=== PATIENT | male | born 1950 | race Caucasian/White ===

== ENCOUNTER 2021-04-01 13:58 | Emergency (ER) | payer OTHER ==
--- NOTE | 2021-04-01 17:23 | EDPHYS ---
Physician Documentation [facility] Name: Arnol Guillaume Age: 70 yrs Sex: Male : 1950 Arrival Date: 04/01/2021 Time: 14:07 Bed DIS1 Private MD: ED Physician Horace Tracey HPI: 04/01 17:13 This 70 yrs old Male presents to ER via Ambulatory with complaints of Knee rn Pain - right. 17:13 The patient presents with pain, that is chronic. The complaints affect the right knee. rn Onset: The symptoms/episode began/occurred. 17:14 Onset: The symptoms/episode began/occurred 1 week(s) ago. Modifying factors: The rn symptoms are alleviated by remaining still, the symptoms are aggravated by movement, weight bearing. Severity of symptoms: At their worst the symptoms were moderate, in the emergency department the symptoms have improved. The patient has experienced similar episodes in the past. The patient has not recently seen a physician. Reports chronic right knee pain, no recent injury but giving him problems again, [facility] come [facility] for [facility]. No swelling/redness/fever. No fall. Reports hurts to walk and bend knee. Reports has had fluid drained from that knee before as well as injections. . Historical: - Allergies: 14:22 No Known Allergies; jl7 - PMHx: 14:22 Diabetes - IDDM; High Cholesterol; jl7 - Immunization history:: Adult Immunizations up to date, Client reports receiving the 2nd dose of the Covid vaccine. - Social history:: Smoking status: Patient denies any tobacco usage or history of. - Family history:: not pertinent. - Hospitalizations: : No recent hospitalization is reported. ROS: 17:14 Constitutional: Negative for fever, chills, and weight loss, Eyes: Negative for injury, rn pain, redness, and discharge, Cardiovascular: Negative for chest pain, palpitations, and edema, Respiratory: Negative for shortness of breath, cough, wheezing, and pleuritic chest pain, Abdomen/GI: Negative for abdominal pain, nausea, vomiting, diarrhea, and constipation, MS/Extremity: + right knee pain, neg for injury or deformity Skin: Negative for injury, rash, and discoloration, Neuro: Negative for headache, weakness, numbness, tingling, and seizure. Exam: 17:14 Constitutional: This is a well developed, well nourished patient who is awake, alert, rn and in no acute distress. Cardiovascular: Regular rate and rhythm. No pulse deficits. Skin: Warm, dry with normal turgor. Normal color with no rashes, no lesions, and no evidence of cellulitis. MS/ Extremity: Pulses equal, no cyanosis. Neurovascular intact. No erythema or warmth of right knee. No overlying skin changes. No bony tenderness. NO gross deformity. Vital Signs: 14:19 BP 166 / 83; Pulse 67; Resp 17; Temp 98.2; Pulse Ox 97% ; Weight 113.4 kg; Pain 10/10; jl7 MDM: 17:08 Patient medically screened. rn 17:14 Differential diagnosis: tendonitis, sprain, knee effusion. Data reviewed: vital signs, rn nurses notes, and as a result, I will discharge patient. Counseling: I had a detailed discussion with the patient and/or guardian regarding: the historical points, exam findings, and any diagnostic results supporting the discharge/admit diagnosis, the need for outpatient follow up, to return to the emergency department if symptoms worsen or persist or if there are any questions or concerns that arise at home. Special discussion: I discussed with the patient/guardian in detail that at this point there is no indication for admission to the hospital. It is understood, however, that if the symptoms persist or worsen the patient needs to return immediately for re-evaluation. Based on the history and exam findings, there is no indication for further emergent testing or inpatient evaluation. I discussed with the patient/guardian the need to see the orthopedic surgeon for further evaluation of the symptoms. ED course: When patient came back, he states was under the impression he would see orthopedist and maybe get injection today, now that he was told would not happen unless had an emergency, he would like to leave and [facility].. 17:22 ED course: Pt medically screened, chooses to leave and f/u as outpt.. rn Administered Medications: No medications were administered Disposition: 04/01/21 17:22 Discharged to Home as Medical Screen. Impression: Pain in right knee. - Condition is Stable. - Discharge Instructions: Knee Pain. - Medication Reconciliation Form, Thank You Letter, Antibiotic Education, Prescription Opioid Use form. - Follow up: Private Physician; When: As needed; Reason: Recheck today's complaints, Re-evaluation by your physician. - Problem is new. - Symptoms have improved. Signatures: Dispatcher [employer] EDHorace Bermeo MD MD rn Leal, Jahala RN RN jl7 Nadeen Sequeira RN RN ld1 Corrections: (The following items were deleted from the chart) 17:17 17:14 Constitutional: This is a well developed, well nourished patient who is awake, rn alert, and in no acute distress. Cardiovascular: Regular rate and rhythm. No pulse deficits. Skin: Warm, dry with normal turgor. Normal color with no rashes, no lesions, and no evidence of cellulitis. MS/ Extremity: Pulses equal, no cyanosis. Neurovascular intact. No erythema or warmth of right knee. No overlying skin changes. rn 17:24 17:22 04/01/2021 17:22 Discharged to Home as Medical Screen. Impression: Pain in right ld1 knee. Condition is Stable. Forms are Medication Reconciliation Form, Thank You Letter, Antibiotic Education, Prescription Opioid Use. Follow up: Private Physician; When: As needed; Reason: Recheck today's complaints, Re-evaluation by your physician. Problem is new. Symptoms have improved. rn
--- NOTE | 2021-04-01 17:23 | ER ---
Nurse's Notes [facility] Name: Arnol Guillaume Age: 70 yrs Sex: Male : 1950 Arrival Date: 04/01/2021 Time: 14:07 Bed DIS1 Private MD: Diagnosis: Pain in right knee Presentation: 04/01 14:17 Chief complaint: Chief complaint: Patient states: right knee pain x 1 week, denies jl7 trauma. 14:19 Coronavirus screen: Client denies travel out of the [place] in the last 14 days. At this jl7 time, the client does not indicate any symptoms associated with coronavirus-19. Ebola Screen: No symptoms or risks identified at this time. Initial Sepsis Screen: Does the patient meet any 2 criteria? No. Patient's initial sepsis screen is negative. Does the patient have a suspected source of infection? No. Patient's initial sepsis screen is negative. Risk Assessment: Do you want to hurt yourself or someone else? Patient reports no desire to harm self or others. Onset of symptoms was March 30, 2021. Care prior to arrival: None. 14:19 Method Of Arrival: Ambulatory jl7 14:19 Acuity: HERACLIO 4 jl7 Historical: - Allergies: 14:22 No Known Allergies; jl7 - PMHx: 14:22 Diabetes - IDDM; High Cholesterol; jl7 - Immunization history:: Adult Immunizations up to date, Client reports receiving the 2nd dose of the Covid vaccine. - Social history:: Smoking status: Patient denies any tobacco usage or history of. - Family history:: not pertinent. - Hospitalizations: : No recent hospitalization is reported. Vital Signs: 14:19 BP 166 / 83; Pulse 67; Resp 17; Temp 98.2; Pulse Ox 97% ; Weight 113.4 kg; Pain 10/10; jl7 ED Course: 14:07 Patient arrived in ED. am2 14:21 Triage completed. jl7 14:22 Arm band placed on right wrist. jl7 17:07 Nadeen Sequeira, HENNA is Primary Nurse. ld1 17:08 Horace Tracey MD is Attending Physician. rn Administered Medications: No medications were administered Outcome: 17:22 Discharge ordered by . rn 17:24 Patient left the ED. ld1 Signatures: TraceyHorace MD MD rn Leal, Jahala, RN RN jl7 Gaby Leigh am2 Nadeen Sequeira RN RN ld1 Corrections: (The following items were deleted from the chart) 14:21 14:17 Chief complaint: vincent kaur
[2021-04-01 18:18] VITALS: BP 166/83; TEMP 98.2; O2SAT 97
== END 2021-04-01 17:24 | disposition home or self-care (01) ==
LOC: ER 13:58
DX: M25.561 Pain in right knee (principal); E11.9 Type 2 diabetes mellitus without complications; E78.00 Pure hypercholesterolemia, unspecified
CPT/HCPCS: 99281